=== PATIENT | female | born 1995 | race African-American/Black ===

== ENCOUNTER 2017-01-13 12:31 | Emergency (ER) | payer OTHER ==
[~2017-01-13] VITALS: Ht 175.3 cm; Wt 51.8 kg
[2017-01-13 12:32] VITALS: BP 144/94; PULSE 104; RESP 20; TEMP 98.8; O2SAT 98
--- NOTE | 2017-01-13 13:16 | PD ---
Physical Exam Time Seen by Provider: 13:14 Narrative 21 y/o presents for evaluation of syncope and CHI. She reports that yesterday she passed out at [employer] and hit her head on the floor. Endorses headache, nausea. VSS. Seen at triage desk. Awaiting bed placement. Data Data Last Documented VS Vital Signs Date Time Temp Pulse Resp B/P Pulse Ox O2 Delivery O2 Flow Rate FiO2 01/13/17 12:32 98.8 104 20 144/94 98 Room Air [facility] Medical Record Reviewed: Yes Supervised Visit with GISELA: Oleg Pompa January 13, 2017 13:16
--- NOTE | 2017-01-13 13:59 | PD ---
HPI Chief Complaint: Syncope/Near-Syncope Time Seen by Provider: 13:59 Travel History International Travel<30 days: No Contact w/Intl Traveler<30days: No Traveled to known affect area: No History of Present Illness HPI 21 year old female presents to the ED for evaluation by private vehicle ~24 hours following syncopal episode at [employer]. Patient states that she walked ~ 1 block to [employer] with a friend yesterday. She states that while she was waiting in line she began to see spots in her vision. She states that she attempted to go to a table, took a few steps, but woke up lying on her back on the floor. She states that her friend reported that she took a few steps, walked into a display and fell to the ground. The friend reported that the patient was responsive "after a few seconds." The patient is unsure if she hit her head. On presentation she complains of dull headache, neck pain, back pain and mild nausea. She denies dizziness, vision changes. She denies CP, palpitations, cough, abdominal pain, changes in bowel habits, dysuria, numbness , tingling, weakness or limited ROM of the extremities. She walked home after the incident. No treatment attempted at home. She takes oral contraception daily. Denies risk of , states she is not currently sexually active. She denies chronic health problems. The patient is a freshman at [employer], family is in [place]. [facility] Past Medical History Medical History: Denies Significant Hx ?: Not LMP: 01/07/2017 Social History Tobacco Use: No Allergies-Medications (Allergen,Severity, Reaction): Coded Allergies: No Known Allergies (Unverified , 01/13/17) Reported Meds & Prescriptions Reported Meds & Active Scripts Active Flexeril (Cyclobenzaprine HCl) 5 Mg Tab 5 Mg PO TID Ibuprofen 600 Mg Tab 600 Mg PO Q8HR PRN Reported 10/04 (Norethindrone-Ethinyl Estradiol) 1-20 Mg-Mcg Tab 1 Tab PO DAILY Review of Systems Except as stated in HPI: all other systems reviewed are Neg Physical Exam Narrative GENERAL: Well-nourished, well-developed, thin, tall black female in no acute distress. Sitting up in the stretcher, responding appropriately. SKIN: Warm and dry. Thorough evaluation reveals no edema, ecchymosis, abrasion , or laceration of the skin. HEAD: Normocephalic. Atraumatic. No raccoon eyes or baltazar sign. No tenderness to palpation of the skull. No bony step-offs. No malocclusion of the teeth. EYES: No scleral icterus. No injection or drainage. PERRLA. EOMI. ENT: Pearly coe tympanic membranes bilaterally. Nasal mucosa is moist. Oropharynx without erythema, edema or exudate. NECK: Supple, trachea midline. No JVD or lymphadenopathy. No midline tenderness to palpation. TTP of the paraspinal musculature. Patient retains full, active range of motion of the neck. CARDIOVASCULAR: Regular rate and rhythm without murmurs, gallops, or rubs. 2+ DP and radial pulses bilaterally. RESPIRATORY: Breath sounds clear and equal bilaterally. No accessory muscle use. GASTROINTESTINAL: Abdomen soft, non-tender, nondistended. + Bowel sounds MUSCULOSKELETAL: No cyanosis, or edema. No tenderness to palpation or limitations to range of motion of the joints of the upper and lower extremities bilaterally. Homans sign negative in bilateral lower extremities. NEUROLOGICAL: Awake and alert. Cranial nerves II through XII intact. Motor and sensory grossly within normal limits. 5/5 muscle strength in all muscle groups. Normal speech. No pronator drift. BACK: Nontender without obvious deformity. No CVA tenderness. No midline tenderness. Data Data Last Documented VS Vital Signs Date Time Temp Pulse Resp B/P Pulse Ox O2 Delivery O2 Flow Rate FiO2 01/13/17 12:32 98.8 104 20 144/94 98 Room Air Orders Electrocardiogram (01/13/17 ) Electrocardiogram (01/13/17 13:17) Iv Access Insert/Monitor (01/13/17 14:13) Sodium Chlor 0.9% 1000 Ml Inj (Ns 1000 M (01/13/17 14:15) Ketorolac Inj (Toradol Inj) (01/13/17 14:15) Ondansetron Inj (Zofran Inj) (01/13/17 14:15) Orphenadrine Sr (Norflex Cr) (01/13/17 14:30) Complete Blood Count With Diff (01/13/17 14:21) Comprehensive Metabolic Panel (01/13/17 14:21) Urinalysis - C+S If Indicated (01/13/17 14:21) Ed Urine Pregnancytest Poc (01/13/17 14:21) Ct Brain W/O Iv Contrast(Rout) (01/13/17 14:21) Labs Laboratory Tests Test 01/13/17 01/13/17 14:20 14:52 White Blood Count 3.9 TH/MM3 Red Blood Count 4.42 MIL/MM3 Hemoglobin 12.2 GM/DL Hematocrit 37.5 % Mean Corpuscular Volume 84.9 FL Mean Corpuscular Hemoglobin 27.7 PG Mean Corpuscular Hemoglobin 32.6 % Concent Red Cell Distribution Width 12.6 % Platelet Count 182 TH/MM3 Mean Platelet Volume 8.8 FL Neutrophils (%) (Auto) 50.6 % Lymphocytes (%) (Auto) 39.5 % Monocytes (%) (Auto) 7.0 % Eosinophils (%) (Auto) 2.1 % Basophils (%) (Auto) 0.8 % Neutrophils # (Auto) 2.0 TH/MM3 Lymphocytes # (Auto) 1.5 TH/MM3 Monocytes # (Auto) 0.3 TH/MM3 Eosinophils # (Auto) 0.1 TH/MM3 Basophils # (Auto) 0.0 TH/MM3 CBC Comment DIFF FINAL Differential Comment Sodium Level 139 MEQ/L Potassium Level 4.6 MEQ/L Chloride Level 108 MEQ/L Carbon Dioxide Level 25.2 MEQ/L Anion Gap 6 MEQ/L Blood Urea Nitrogen 10 MG/DL Creatinine 0.81 MG/DL Estimat Glomerular Filtration 110 ML/MIN Rate Random Glucose 81 MG/DL Calcium Level 9.2 MG/DL Total Bilirubin 0.6 MG/DL Aspartate Amino Transf 31 U/L (AST/SGOT) Alanine Aminotransferase 17 U/L (ALT/SGPT) Alkaline Phosphatase 70 U/L Total Protein 7.4 GM/DL Albumin 3.6 GM/DL Urine Color YELLOW Urine Turbidity HAZY Urine pH 5.5 Urine Specific [place] 1.026 Urine Protein TRACE mg/dL Urine Glucose (UA) NEG mg/dL Urine Ketones NEG mg/dL Urine Occult Blood NEG Urine Nitrite NEG Urine Bilirubin NEG Urine Urobilinogen LESS THAN 2.0 MG/DL Urine Leukocyte Esterase SMALL Urine RBC 2 /hpf Urine WBC 5 /hpf Urine Squamous Epithelial 4 /hpf Cells Urine Bacteria RARE /hpf Urine Mucus FEW /lpf Microscopic Urinalysis Comment CULT NOT INDICATED MDM Medical Decision Making Medical Screen Exam Complete: Yes Emergency Medical Condition: Yes Differential Diagnosis Arrhythmia versus electrolyte abnormality versus dehydration versus UTI versus ACS versus versus DVT versus TBI versus other Narrative Course 21 year old female presents to the ED for evaluation by private vehicle ~24 hours following syncopal episode at [employer]. Patient states that she walked ~ 1 block to [employer] with a friend yesterday. She states that while she was waiting in line she began to see spots in her vision. She states that she attempted to go to a table, took a few steps, but woke up lying on her back on the floor. She states that her friend reported that she took a few steps, walked into a display and fell to the ground. The friend reported that the patient was responsive "after a few seconds." The patient is unsure if she hit her head. On presentation she complains of dull headache, neck pain, back pain and mild nausea. She denies dizziness, vision changes, CP, palpitations, cough, abdominal pain, changes in bowel habits, dysuria, numbness, tingling, weakness or limited ROM of the extremities. She walked home after the incident. She takes oral contraception daily. Denies risk of , states she is not currently sexually active. Vitals reviewed. Heart rate 104 presentation. Physical exam reveals a tall, thin, nontoxic appearing black female in no acute distress. No focal neural deficits. Chest clear to auscultation bilaterally. Abdomen soft, nontender. IV was established. Patient was administered a liter bolus of NS, 30 mg Toradol, 4mg Zofran and PO Norflex. CBC: WBC 3.9, hemoglobin 12.2. Chemistry unremarkable. UA no culture indicated. Urine test: negative. CT brain: Normal per radiology read. EKG: Rate 78, sinus rhythm. CO interval 149, QRS 82, QTC 377. Or mental axis. No acute ST changes. Reviewed by Dr. Benito. Recheck of the patient reveals improvement of her pain symptoms and headache. She is prescribed a short course of anti-inflammatories and muscle relaxants. She is instructed take the medication as prescribed, return to normal, gentle activities as tolerated, follow-up with her primary care provider for further evaluation. She indicated understanding of the instructions and is agreeable to the care plan. The patient is stable and discharged home. Diagnosis Primary Impression: Syncopal episodes Qualified Code: R55 - Syncope, unspecified syncope type Additional Impressions: Musculoskeletal neck pain Musculoskeletal back pain Referrals: Primary Care Physician Patient Instructions: General Instructions, Musculoskeletal Pain (ED), Syncope (ED) Departure Forms: School Release, Return to School Date: January 14, 2017 Tests/Procedures Additional Instructions: Rest, hydrate. Resume normal, gentle activities as tolerated. No strenuous physical activities for the next few days 600 mg ibuprofen up to 3 times a day as needed for musculoskeletal pain. Flexeril up to three times a day as needed for muscle spasm. Do not drive while taking muscle relaxants. Applying ice or heat to areas with sore muscles may help to improve your pain. Do not apply ice/ heat for longer than 20 m/h. Follow-up with your primary care provider for further evaluation. Return to the ED for any urgent or emergent medical condition. Med/Other Pt SpecificInfo: Prescription(s) given Scripts Cyclobenzaprine (Flexeril)5 Mg Tab5 Mg PO TID #15 TAB Ref 0 Prov:Garcia Bay MD 01/13/17 Ibuprofen 600 Mg [id number] Mg PO Q8HR PRN (PAIN) #15 TAB Ref 0 Prov:Garcia Bay MD 01/13/17 Disposition: 01 DISCHARGE HOME Condition: Stable Katrin Moreno January 13, 2017 13:59
[2017-01-13] MEDS ORDERED: JUNETAB PO (14:13)
[2017-01-13] MEDS ORDERED: SODIUM CHLOR 0.9% 1000 ML INJ 1,000 ML IV ONE (14:15)
[2017-01-13] MEDS ORDERED: KETOROLAC TROMETHAMINE 30 MG/ML (IVP) VIAL IV PUSH ONE (14:15)
[2017-01-13] MEDS ORDERED: ONDANSETRON HCL 4 MG/2 ML VIAL IV PUSH ONE (14:15)
[2017-01-13] MEDS ORDERED: ORPHENADRINE CITRATE 100 MG SUSTAINED RELEASE TAB PO ONE (14:30)
[2017-01-13 15:13] LABS: BASOPHIL % 0.8 % (0.0-2.0); EOSINOPHIL # 0.1 TH/MM3 (0-0.4); EOSINOPHIL % 2.1 % (0.0-4.0); HEMATOCRIT 37.5 % (35.0-46.0); HEMO FLAGS DIFF FINAL; LYMPH % 39.5 % (9.0-44.0); LYMPHOCYTE # 1.5 TH/MM3 (1.0-4.8); MEAN CELL VOLUME 84.9 FL (80.0-100.0); MEAN CORPUSCULAR HEMOGLOBIN 27.7 PG (27.0-34.0); MEAN CORPUSCULAR HGB CONC 32.6 % (32.0-36.0); NEUT % 50.6 % (16.0-70.0); PLATELET COUNT 182 TH/MM3 (150-450); RED BLOOD COUNT 4.42 MIL/MM3 (4.00-5.30); RED CELL DISTRIBUTION WIDTH 12.6 % (11.6-17.2); WHITE BLOOD COUNT 3.9 TH/MM3 (4.0-11.0)
[2017-01-13 15:16] LABS: BACTERIA, URINE RARE /hpf; BLOOD, URINE NEG (NEG); GLUCOSE,URINE NEG (NEG); KETONE, URINE NEG (NEG); MUCUS URINE FEW /lpf (OCC); NITRITE,URINE NEG (NEG); PH, URINE 5.5 (5.0-8.5); SQUAMOUS EPITHELIAL CELL URINE 4 /hpf (0-5); URINE COLOR YELLOW (YELLW/STRAW)
[2017-01-13 15:19] LABS: COMMENT (UR) CULT NOT INDICATED; CULTURE IF INDICATED CULT NOT INDICATED
[2017-01-13 15:30] LABS: ALKALINE PHOSPHATASE 70 U/L (45-117); TOTAL BILIRUBIN ADULT 0.6 MG/DL (0.2-1.0)
[2017-01-13 15:34] LABS: ALT (GPT) 17 U/L (9-42); ANION GAP 6 MEQ/L (5-15); AST (GOT) 31 U/L (16-38); BICARBONATE 25.2 MEQ/L (21.0-32.0); BLOOD UREA NITROGEN 10 MG/DL (7-18); CHLORIDE 108 MEQ/L (98-107); GLOMERULAR FILTRATION RATE 110 ML/MIN (>89); POTASSIUM 4.6 MEQ/L (3.5-5.1); SODIUM (NA) 139 MEQ/L (136-145)
--- NOTE | 2017-01-13 16:00 | RADRPT ---
EXAM DATE/TIME: 01/13/2017 15:44 [facility] COMPARISON: No previous studies available for comparison. INDICATIONS : Syncopal episode yesterday with fall and trauma to head. RADIATION DOSE: 56.35 CTDIvol (mGy) MEDICAL HISTORY : None SURGICAL HISTORY : None. ENCOUNTER: Initial ACUITY: 1 day PAIN SCALE: 0/10 LOCATION: Bilateral head TECHNIQUE: Multiple contiguous axial images were obtained of the head. Using automated exposure control and adj ustment of the mA and/or kV according to patient size, radiation dose was kept as low as reasonably a chievable to obtain optimal diagnostic quality images. FINDINGS: CEREBRUM: The ventricles are normal for age. No evidence of midline shift, mass lesion, hemorrhage or acute in farction. No extra-axial fluid collections are seen. POSTERIOR FOSSA: The cerebellum and brainstem are intact. The 4th ventricle is midline. The cerebellopontine angle i s unremarkable. EXTRACRANIAL: The visualized portion of the orbits is intact. SKULL: The calvaria is intact. No evidence of skull fracture. CONCLUSION: Normal examination. Toro Cottrell MD on January 13, 2017 at 15:56 Board Certified Radiologist. This report was verified electronically.
[2017-01-13] MEDS ORDERED: CYCL5TAB PO (16:17)
[2017-01-13] MEDS ORDERED: IBUP-232 PO (16:17)
[2017-01-13 16:35] VITALS: RESP 18
--- NOTE | 2017-01-13 18:24 | EKG ---
Date Performed: 01/13/2017 Time Performed: 13:30:52 PTAGE: 21 years EKG: Sinus rhythm WITH SINUS ARRHYTHMIA NORMAL ECG NO PREVIOUS TRACING DOCTOR: Arthur Arnold Interpretating Date/Time 01/13/2017 18:22:04
== END 2017-01-13 16:59 | disposition home or self-care (01) ==
LOC: NEPD 12:31
DX: R55 Syncope and collapse (principal); M54.2 Cervicalgia; R51 Headache; R11.0 Nausea; M54.9 Dorsalgia, unspecified
CPT/HCPCS: 70450; 80053; 81001; 84703; 85025; 93005; 96361; 96374; 96375; 99284; J1885; J2405; J7030